=== PATIENT | male | born 1955 | race Caucasian/White ===

== ENCOUNTER 2025-10-07 22:28 | Inpatient (IN) | payer OTHER ==
[2025-10-07] MEDS: HYDROcodone/Acetaminophen 10/325 mg Tablet PO PRN (23:22)
[2025-10-07] MEDS: Cyclobenzaprine 10 MG TAB PO PRN (23:23)
[2025-10-08] MEDS: Famotidine 20 MG TAB PO SCH (08:17)
[2025-10-08] MEDS: DULoxetine 30 MG CAP PO SCH (08:17)
[2025-10-08] MEDS: Losartan 50 MG TAB PO SCH (08:18)
[2025-10-08] MEDS: Spironolactone 25 MG TAB PO SCH (08:18)
[2025-10-08] MEDS: Enoxaparin 40 MG (0.4 mL) SYRINGE SC SCH (08:18)
[2025-10-08] MEDS: Gabapentin 100 MG CAP PO SCH (08:19)
[2025-10-08 15:52] VITALS: BMI 34.7
[2025-10-09] MEDS ORDERED: Ibuprofen 200 MG TAB PO PRN (08:57)
[2025-10-09] MEDS: Ibuprofen 400 MG TAB PO PRN (09:02)
[2025-10-09] MEDS: HYDROcodone/Acetaminophen 5/325 mg Tablet PO PRN (13:46)
[2025-10-09] MEDS: Cyclobenzaprine 10 MG TAB PO PRN (20:02)
[2025-10-11 06:21] VITALS: BMI 32.5
[2025-10-12 06:49] LABS: ALT (SGPT) 38 U/L (Less than 45); AST (SGOT) 21 U/L (11-34); Albumin 3.6 g/dL (3.1-4.5); Alkaline Phosphatase 82 U/L (40-110); Anion Gap 17 mmol/L (10-20); BUN (Urea Nitrogen) 24 mg/dL (8.4-25.7); Bilirubin, Total 0.5 mg/dL (0.3-1.2); CK (CPK) 49 U/L (30-200); Calc. Creatinine Clearance 85 mL/min (70-130); Calcium 9.1 mg/dL (7.8-10.44); Carbon Dioxide 23 mmol/L (23-31); Chloride 103 mmol/L (98-107); Globulin 2.8 g/dL (2.4-3.5); Glucose 113 mg/dL (80-115); Potassium 4.3 mmol/L (3.5-5.1); Sodium 139 mmol/L (136-145)
[2025-10-12] MEDS ORDERED: Famotidine 20 MG TAB PO PRN (14:18)
[2025-10-12] MEDS: Calcium Carbonate 500 MG ChewTAB PO SCH (14:32)
[2025-10-12] MEDS: Pantoprazole 40 MG DR.TAB PO SCH (14:32)
[2025-10-12 14:33] LABS: Troponin I 0.032 ng/mL (< 0.028)
[2025-10-13] MEDS: Pantoprazole 40 MG DR.TAB PO SCH (08:30)
[2025-10-14] MEDS: Senokot S 8.6-50 MG TAB PO SCH (08:35)
[2025-10-15 06:52] VITALS: BP 140/60; TEMP 98
[2025-10-15] MEDS: Acetaminophen 325 MG TAB PO PRN (10:07)
== END 2025-10-15 10:45 | disposition home or self-care (01) | DRG 945 ==
LOC: MADMS 22:28
PROVIDERS: ADMIT Family Medicine; ATTEND Family Medicine
PROC: F07Z9ZZ Gait Training/Functional Ambulation Treatment (ICD-10-PCS; principal; 2025-10-08)
DX: R53.81 Other malaise (principal); F03.93 Unspecified dementia, unspecified severity, with mood disturbance; F03.94 Unspecified dementia, unspecified severity, with anxiety; I13.0 Hypertensive heart and chronic kidney disease with heart failure and stage 1 through stage 4 chronic kidney disease, or unspecified chronic kidney disease; M62.82 Rhabdomyolysis; Z88.1 Allergy status to other antibiotic agents; E78.5 Hyperlipidemia, unspecified; I25.10 Atherosclerotic heart disease of native coronary artery without angina pectoris; Z95.5 Presence of coronary angioplasty implant and graft; Z90.49 Acquired absence of other specified parts of digestive tract; N18.9 Chronic kidney disease, unspecified; G89.29 Other chronic pain; M54.9 Dorsalgia, unspecified; Z98.890 Other specified postprocedural states; I50.9 Heart failure, unspecified; R74.01 Elevation of levels of liver transaminase levels
CPT/HCPCS: 36415; 80053; 82550; 84484; J1650